=== PATIENT | male | born 1970 | race Caucasian/White ===

== ENCOUNTER 2019-02-21 19:12 | Emergency (ER) | payer SELFPAY ==
[2019-02-21] MEDS ORDERED: ASPIRIN 81 MG CHEW TAB ONE (19:16)
[2019-02-21] MEDS ORDERED: ASPIRIN 81 MG CHEW TAB PO ONE (19:21)
[2019-02-21] MEDS ORDERED: HEPARIN SODIUM 5000 UNIT/1 ML IV ONE (19:27)
[2019-02-21] MEDS ORDERED: NITROGLYCERIN 0.4 MG TAB.SUBL SL ONE (19:27)
[2019-02-21] MEDS ORDERED: HEPARIN SODIUM,PORCINE/D5W 20,000 UNIT in PREMIX BAG 1 BAG IV ONE ×2 (19:30→19:50)
[2019-02-21] MEDS ORDERED: METOPROLOL TARTRATE 5 MG/5 ML VIAL IV ONE (19:34)
[2019-02-21] MEDS ORDERED: 0.9 % SODIUM CHLORIDE 1,000 ML IV ONE ×2 (19:36→20:07)
[2019-02-21] MEDS ORDERED: CLOPIDOGREL BISULFATE 75 MG TABLET ONE (19:42)
[2019-02-21] MEDS ORDERED: CLOPIDOGREL BISULFATE 75 MG TABLET PO ONE (19:42)
--- NOTE | 2019-02-21 19:48 | ED Physician Documentation ---
Chest Pain - HISTORIAN Historian: patient - HPI Stated Complaint: chest pain Chief Complaint: Chest Pain Additional Information: Patient presents to ED with complains of substernal chest pain, sharp stabbing, 8/10, radiating to both arms with associated shortness of breath and dizziness. He states the pain started about an hour ago after having a coughing fit secondary to ibuprofen getting stuck in his throat. Patient reports taking Ibuprofen 4-600 mg every 4-6 hours daily since the end of December 2018 due to low back pain with sciatica Onset: hours (1) Timing: sudden onset Duration: constant Last known Well Date: 02/21/19 Last Known Well Time: 18:00 Context: other (coughing) Severity: severe Quality: tightness, sharp, stabbing Chest Pain Radiation: arms Chest Pain Signs/Symptoms: dizziness Worsened By: nothing Relieved By: nothing - ROS CONST: none MS/LYMPH: none GI/: none EYES/ENT: none SKIN/ENDO: none - PAST HX MN risk factors: no pertinent history DVT/PE Risk Factors: none TAD/AAA risk factors: none Neuro deficit: none GI disease: none Lung disease: COPD Surgeries/Procedures: none Allergies/Adverse Reactions: Allergies Allergy/AdvReac Type Severity Reaction Status Date / Time cefazolin Allergy Severe swelling Verified 02/21/19 19:39 prednisone Allergy Mild Verified 02/21/19 19:39 Penicillins AdvReac Generalized Verified 02/21/19 19:39 Swelling Home Medications: Ambulatory Orders Medication Instructions Recorded Ibuprofen 200 mg PO Q6 02/21/19 - SOCIAL HX Smoking History: cigarettes, greater than 1 pack/day Alcohol Use: none Drug Use: none - FAMILY HX Family HX: none - VITAL SIGNS Vital Signs: Vital Signs Temp Pulse Resp BP Pulse Ox 98 F 70 22 170/97 95 02/21/19 19:12 02/21/19 19:12 02/21/19 19:12 02/21/19 19:12 02/21/19 19:12 - REVIEWED ASSESSMENTS Nursing Assessment Reviewed: Yes Vitals Reviewed: Yes Progress - Progress Progress: [address] Cartwright, Track Repair Person at [facility]. He accepts transfer. Recommended loading dose of Plavix 300mg in addition to Heparin loading and Heparin drip. Transport arranged 2002 Patient left ED with EMS. - EKG/XRAY/CT EKG: ST elevation (avF, V3), ST depression ED Results Lab/Radiology - Orders Orders: ED Orders Category Date Time Status Place IV Lock 1T Care 02/21/19 19:19 Ordered CHEST 1VIEW [RAD] Stat Exams 02/21/19 Ordered CBC/PLATELET/DIFF Routine Lab 02/21/19 Ordered CMP Routine Lab 02/21/19 Ordered NT-proBNP Stat Lab 02/21/19 Ordered TROPONIN I (cTnI) Stat Lab 02/21/19 Ordered 0.9 % Sodium Chloride [Normal Saline] 1,000 ml Med 02/21/19 19:36 Discontinued IV .STK-MED Aspirin [Isaiah] Med 02/21/19 19:16 Discontinued 324 mg .ROUTE .STK-MED ONE Aspirin [Isaiah] Med 02/21/19 19:21 Once 324 mg PO NOW ONE Clopidogrel Bisulfate [Plavix] Med 02/21/19 19:42 Once 300 mg PO NOW ONE Heparin Sodium [Heparin] Med 02/21/19 19:27 Once 5,000 unit IV NOW ONE Heparin Sodium,Porcine/D5w [Heparin] 20,000 unit Med 02/21/19 19:30 Ordered Premix Bag [Premix Fluid] 1 bag IV NOW Metoprolol Tartrate [Lopressor] Med 02/21/19 19:34 Once 5 mg IV NOW ONE Nitroglycerin [Nitroquick] Med 02/21/19 19:27 Once 0.4 mg SL NOW ONE EKG WITH COMPARISON Stat Ther 02/21/19 Ordered Chest Pain Physical Exam - EXAM General Appearance: mild distress, anxious, other (ill-appearing/pack) EENT: LEFTY Neck: nml inspection Respiratory: no resp. distress, nml breath sounds CVS: reg. rate & rhythm Abdomen: soft, normal bowel sounds Skin: warm/dry Extremities: non-tender, no edema Neuro: oriented X3, motor nml, sensation nml Discharge Clincal Impression: STEMI (ST elevation myocardial infarction) Qualifiers: Involved coronary artery: unspecified coronary artery Qualified Code(s): I21.3 - ST elevation (STEMI) myocardial infarction of unspecified site Referrals: Primary Doctor,No [Primary Care Provider] - 2 Days Additional Instructions: Patient transferred to [facility] under Dr. Cartwright's care. Patient was treated with ASA 324mg, Nitro 0.4mg SL, Heparin 5,000 units bolus, Heparin 1400 units per hour, Plavix 300mg. Condition: Fair Disposition: 02 XFER [facility]M HOSP Decision to Admit: [id number] Date of Decison to Admit: 02/21/19 Decision Time: 19:45
[2019-02-21 20:36] VITALS: BP 164/96
--- NOTE | 2019-02-21 22:08 | Diagnostic Imaging Report ---
MALATHI HARO [facility] [id number] [facility] [address] [place], [place]. [address] Report Submission Date: Feb 21, 2019 8:00:41 PM CDT Patient Study Name: GUNJAN MEDRANO Date: Feb 21, 2019 7:33:35 PM CDT Modality Type: DX Gender: M Description: CHEST 1[facility] : 66 Institution: [facility] Physician: MALATHI HARO Chest AP portable at 1933 hours of February 21, 2019. Clinical history: Acute chest pain Normal heart shadow and mediastinum. Clear lungs without acute infiltrate or pleural effusion. No pneumothorax. Normal bony thorax. Impression: No active pulmonary pathology Electronically signed on Feb 21, 2019 8:00:41 PM CDT by: Sylvain WILD
[2019-02-22 07:51] LABS: eGFR (Non-African) > 60
[2019-02-22 09:26] LABS: MEAN CORPUSCULAR HEMOGLOBIN 34.9 pg (28.0-34.0)
[2019-02-22 09:27] LABS: EOSINOPHILS % 1 % (0-7); MONOCYTES % 5 % (0-11); SEGMENTED NEUTROPHILS % 66 % (39-79)
== END 2019-02-21 20:00 | disposition short-term general hospital (02) ==
LOC: ED 19:12
DX: I21.3 ST elevation (STEMI) myocardial infarction of unspecified site (principal); Z72.0 Tobacco use
CPT/HCPCS: 36415; 71045; 80053; 83880; 84484; 85025; 93005; 96374; 99285; J1644; J7030; S1016